=== PATIENT | female | born 1960 | race Caucasian/White ===

== ENCOUNTER 2022-12-30 15:21 | Emergency (ER) | payer BC, SELFPAY ==
[2022-12-30] VITALS (17 sets, daily range): BP systolic 133–157; BP diastolic 83–118; PULSE 54–92; RESP 16; TEMP 36.6; O2SAT 94–98; BMI 36.7
--- NOTE | 2022-12-30 15:47 | CRLHL7_ITS ---
For Patients: As a result of the Cures Act, medical imaging exams and procedure reports are released immediately into your electronic medical record. You may view this report before your referring provider. If you have questions, please contact your health care provider. INDICATION: Lightheadedness. TECHNIQUE: Chest 2 views. COMPARISON: None. FINDINGS: Cardiovascular and mediastinum: Heart size and vasculature are normal in caliber and appearance. Lungs and pleural spaces: Lungs are clear. No sign of infiltrate or mass. No sign of pleural effusion. No pneumothorax. Bones and soft tissues: No significant findings. IMPRESSION: No acute or significant findings. Dictated by Jer Bates MD @ 12/30/2022 5:56:35 PM (Electronically Signed)
[2022-12-30] MEDS: ONDANSETRON 2 MG/ML inj 4 MG IVP (16:07)
[2022-12-30] MEDS: LACTATED RINGERS 1000 ML 1,000 ML IV (16:07)
--- NOTE | 2022-12-30 16:17 | ED.GENADULT ---
HPI - General Adult General Date Seen: 12/30/22 Chief complaint: Neuro Symptoms/Altered Deficit Stated complaint: Dizzy, nausea for 2 days Time Seen by Provider: 12/30/22 15:39 Source: patient Mode of arrival: ambulatory Limitations: no limitations History of Present Illness HPI narrative: Patient is 62-year-old female presenting to the emergency department for nausea and lightheadedness. She states symptoms started yesterday. States she 1 episode of emesis but still feels nauseated. Has been able to eat and drink small amounts. Says he had some dizziness that woke her up yesterday was felt like she was on a boat. That dizziness has since resolved and states today she only gets lightheaded and feels like she might get close to passing out if she bends over and stands back up quickly. Denies having symptoms like this before. While in bed she says she does not have any lightheadedness current the but is feeling nauseated. Was having a headache yesterday she does have chronic migraines but denies having headache today. Denies fevers, chills, chest pain, shortness of breath, weakness, numbness, diarrhea, constipation, abdominal pain. She does states she is concerned about aortic aneurysm considering her mother had an aortic aneurysm and she she has been told it can be genetic. Related Data Home Medications Medication Instructions Recorded Confirmed ascorbic acid (vitamin C) 500 mg mg PO 12/30/22 capsule aspirin 81 mg capsule 81 mg PO DAILY 12/30/22 12/30/22 atorvastatin 20 mg tablet 20 mg PO DAILY 12/30/22 12/30/22 lisinopril 10 mg tablet 10 mg PO DAILY 12/30/22 12/30/22 metoprolol tartrate 50 mg tablet PO 12/30/22 tumeric 100 mg-lizandro 150 mg-olive cap PO 12/30/22 50 mg-oreg 150 mg-caprylate capsule Previous Rx's Medication Instructions Recorded ondansetron 4 mg disintegrating 4 mg PO Q6H #20 tabs 12/30/22 tablet Allergies Allergy/AdvReac Type Severity Reaction Status Date / Time Sulfa (Sulfonamide Allergy Severe Rash Verified 12/30/22 15:27 Antibiotics) Review of Systems Status of ROS: Reports: 10 or more systems reviewed and unremarkable except as noted in History and below PFSH PFSH Social History Smoking Status: Current every day smoker What tobacco products do you use: cigarettes Smoking packs per day: 0.25 Smoking cigarettes per day: 5.0 Do you use any of these nicotine containing products: None Second hand tobacco smoke exposure: No How often do you have a drink containing alcohol: never AUDIT-C Alcohol total score: 0 Non-prescribed substance use: denies use service: No Exam Narrative: Exam Narrative: Const: Well-nourished, Well-developed, in mild distress Eyes: PERRL, no conjunctival injection, and symmetrical lids ENMT: Atraumatic external nose and ears. Moist mucous membranes. Neck: Symmetric, trachea midline, No thyromegaly. CVS: RRR, No murmurs or gallops. Peripheral pulses 2+ and equal in all extremities RESP: Unlabored respiratory effort. Clear to auscultation bilaterally. GI: Nontender/Nondistended, No rebound or guarding. MSK:Extremities w/o deformity, Normal Active ROM Skin: Warm, Dry. No rashes or lesions. Neuro: Normal Muscle tone, No focal neurological deficits. Psych: Awake, Alert, & Oriented x3. Appropriate mood and affect. Const: Vital Signs, click to edit/add: Vital Signs - 24 hr 12/30/22 15:27 12/30/22 16:16 12/30/22 16:17 Temperature 97.8 F Pulse Rate 65 65 Pulse Rate [Pulse Oximeter] 92 Respiratory Rate 16 Blood Pressure 133/118 H Blood Pressure [Ri ght Upper Arm] 157/106 H Pulse Oximetry 98 96 94 Oxygen Delivery Me thod Room Air 12/30/22 16:18 12/30/22 16:30 12/30/22 16:32 Temperature Pulse Rate 66 63 62 Pulse Rate [Pulse Oximeter] Respiratory Rate Blood Pressure 144/89 H Blood Pressure [Ri ght Upper Arm] Pulse Oximetry 95 96 95 Oxygen Delivery Me thod 12/30/22 16:33 12/30/22 16:49 12/30/22 17:00 Temperature Pulse Rate 64 61 61 Pulse Rate [Pulse Oximeter] Respiratory Rate Blood Pressure Blood Pressure [Ri ght Upper Arm] Pulse Oximetry 94 97 97 Oxygen Delivery Me thod 12/30/22 17:02 12/30/22 17:03 12/30/22 17:15 Temperature Pulse Rate 62 60 65 Pulse Rate [Pulse Oximeter] Respiratory Rate 16 Blood Pressure 145/87 H Blood Pressure [Ri ght Upper Arm] Pulse Oximetry 97 96 96 Oxygen Delivery Me thod 12/30/22 17:30 12/30/22 17:32 12/30/22 17:45 Temperature Pulse Rate 57 L 57 L 54 L Pulse Rate [Pulse Oximeter] Respiratory Rate Blood Pressure 134/83 Blood Pressure [Ri ght Upper Arm] Pulse Oximetry 97 95 96 Oxygen Delivery Me thod 12/30/22 18:00 12/30/22 18:02 Temperature Pulse Rate 56 L 54 L Pulse Rate [Pulse Oximeter] Respiratory Rate Blood Pressure 137/89 Blood Pressure [Ri ght Upper Arm] Pulse Oximetry 97 96 Oxygen Delivery Me thod Course Vital Signs Vital signs: Initial Vital Signs Temperature 97.8 F 12/30/22 15:27 Temperature Source Temporal Artery Scan 12/30/22 15:27 Pulse Rate 92 12/30/22 15:27 Pulse Rhythm Regular 12/30/22 15:27 Pulse Strength 3+ Normal 12/30/22 15:27 Respiratory Rate 16 12/30/22 15:27 Blood Pressure 157/106 H 12/30/22 15:27 Blood Pressure Mean 123 H 12/30/22 15:27 Blood Pressure Position Sitting 12/30/22 15:27 Pulse Oximetry 98 12/30/22 15:27 Oxygen Delivery Method Room Air 12/30/22 15:27 Vital Signs Temperature 97.8 F 12/30/22 15:27 Pulse Rate 92 12/30/22 15:27 Respiratory Rate 16 12/30/22 15:27 Blood Pressure 157/106 H 12/30/22 15:27 Pulse Oximetry 98 12/30/22 15:27 Oxygen Delivery Method Room Air 12/30/22 15:27 Temperature 97.8 F 12/30/22 15:27 Pulse Rate 54 L 12/30/22 18:02 Respiratory Rate 16 12/30/22 17:02 Blood Pressure 137/89 12/30/22 18:02 Pulse Oximetry 96 12/30/22 18:02 Oxygen Delivery Method Room Air 12/30/22 15:27 Medical Decision Making MDM Narrative Medical decision making narrative: Patient is a 62-year-old female presenting to the emergency department for lightheadedness and nausea. She tells me she is feeling dizzy with the description sounds more like lightheaded. Symptoms were worse yesterday and today they only occur when she bends over. She has been having some nausea and 1 episode of emesis yesterday. She states she has been eating and drinking without issues. She has no other medical issues other than hypertension and hyperlipidemia. At this time will order CBC, CMP, chest x-ray, magnesium, troponin common cold/flu. Patient given Zofran for nausea and lactated Ringer's for dehydration After medication patient states his symptoms improved significantly. Lab work returns showing no concerning abnormalities. COVID and flu were negative. No clear obvious signs of infection. Chest x-ray returned showing no acute abnormalities. Does not appear to be cardiac related. Electrolytes are all normal. She is concern for an aortic aneurysm but she is having no abdominal pain and stable vital signs in a ruptured AAA seems very unlikely at this time. She does have a history of migraines but is not having headache today. I do not believe head imaging is necessary at this time. Patient's symptoms are most likely from a viral syndrome and she can be discharged home. I informed to drink more water as good hydration is important for recovery. She is agreeable to this plan Lab Data Labs: Lab Results 12/30/22 12/30/22 12/30/22 Range/Units 15:48 16:10 16:10 WBC 9.66 (4.50-11.00) K/uL RBC 4.55 (4.00-5.20) m/uL Hgb 13.0 (12.0-16.0) gm/dL Hct 40.4 (33.0-51.0) % MCV 89 (80-100) fL MCH 29 (26-34) pg MCHC 32 (32-36) gm/dL RDW Coeff of Geeta 13.5 (11.5-15.5) % Plt Count 294 (140-440) K/uL Neut % (Auto) 72.7 H (42.0-72.0) % Lymph % (Auto) 22.5 (20-44) % [place] % (Auto) 3.9 (0.0-11.0) % Eos % (Auto) 0.4 (0.0-7.0) % Baso % (Auto) 0.2 (0.0-3.0) % Neut # (Auto) 7.00 (1.7-7.0) K/uL Lymph # (Auto) 2.17 (0.90-2.90) K/uL [place] # (Auto) 0.40 (0.00-0.90) K/UL Eos # (Auto) 0.04 (0.00-0.50) K/uL Baso # (Auto) 0.02 (0.00-0.30) K/uL Abs Immat Gran (auto) 0.03 (0.00-0.30) K/uL Imm/Tot Granulo (auto) 0.3 % Sodium 141 (135-149) mmol/L Potassium 3.7 (3.6-5.1) mmol/L Chloride 105 (96-114) mmol/L Carbon Dioxide 28 (20-32) mmol/L Anion Gap 8 (7-15) mEq/L BUN 12 (7-30) mg/dL Creatinine 0.7 (0.5-1.5) mg/dL Estimated Creat Clear 42.89 Estimated GFR 97 ml/min Glucose 164 H (60-115) mg/dL Calcium 10.0 (8.4-10.6) mg/dL Magnesium 2.1 Cancelled (1.5-2.6) mg/dL Total Bilirubin 0.3 (0.1-1.5) mg/dL AST 28 (12-35) U/L ALT 24 (4-35) U/L Alkaline Phosphatase 103 (40-150) U/L Troponin I < 0.01 L (0.01-0.04) ng/mL Total Protein (6.0-8.3) g/dL Albumin (3.3-5.0) g/dL SARS-CoV-2 (PCR) Negative SARS-CoV-2 (Negative) Influenza Type A (PCR) Negative PCR FLU A (Negative) Influenza Type B (PCR) Negative PCR FLU B (Negative) 12/30/22 Range/Units 16:10 WBC (4.50-11.00) K/uL RBC (4.00-5.20) m/uL Hgb (12.0-16.0) gm/dL Hct (33.0-51.0) % MCV (80-100) fL MCH (26-34) pg MCHC (32-36) gm/dL RDW Coeff of Geeta (11.5-15.5) % Plt Count (140-440) K/uL Neut % (Auto) (42.0-72.0) % Lymph % (Auto) (20-44) % [place] % (Auto) (0.0-11.0) % Eos % (Auto) (0.0-7.0) % Baso % (Auto) (0.0-3.0) % Neut # (Auto) (1.7-7.0) K/uL Lymph # (Auto) (0.90-2.90) K/uL [place] # (Auto) (0.00-0.90) K/UL Eos # (Auto) (0.00-0.50) K/uL Baso # (Auto) (0.00-0.30) K/uL Abs Immat Gran (auto) (0.00-0.30) K/uL Imm/Tot Granulo (auto) % Sodium (135-149) mmol/L Potassium (3.6-5.1) mmol/L Chloride (96-114) mmol/L Carbon Dioxide (20-32) mmol/L Anion Gap (7-15) mEq/L BUN (7-30) mg/dL Creatinine (0.5-1.5) mg/dL Estimated Creat Clear Estimated GFR ml/min Glucose (60-115) mg/dL Calcium (8.4-10.6) mg/dL Magnesium (1.5-2.6) mg/dL Total Bilirubin (0.1-1.5) mg/dL AST (12-35) U/L ALT (4-35) U/L Alkaline Phosphatase (40-150) U/L Troponin I Cancelled (0.01-0.04) ng/mL Total Protein 7.4 (6.0-8.3) g/dL Albumin 4.3 (3.3-5.0) g/dL SARS-CoV-2 (PCR) (Negative) Influenza Type A (PCR) (Negative) Influenza Type B (PCR) (Negative) Imaging Data Chest x-ray: Radiologist's impression: INDICATION: Lightheadedness. TECHNIQUE: Chest 2 views. COMPARISON: None. FINDINGS: Cardiovascular and mediastinum: Heart size and vasculature are normal in caliber and appearance. Lungs and pleural spaces: Lungs are clear. No sign of infiltrate or mass. No sign of pleural effusion. No pneumothorax. Bones and soft tissues: No significant findings. IMPRESSION: No acute or significant findings. Dictated by Jer Bates MD @ 12/30/2022 5:56:35 PM ECG Data Attestation: I personally reviewed and interpreted this ECG as follows: Interpretation: Normal sinus rhythm at rate 65 beats per minute, normal intervals, normal axis, no ST or T-wave abnormalities Discharge Plan Discharge Clinical Impression: Acute viral syndrome Patient Disposition: Home, Self-Care Condition: Improved Instructions: Viral Syndrome (ED) Additional Instructions: Stay well-hydrated. Take the Zofran as needed for nausea. Follow-up with the primary care provider if symptoms are not improving. Develop any new or worsening symptoms return to the emergency department. Prescriptions: New ondansetron 4 mg tablet,disintegrating 4 mg PO Q6H Qty: 20 0RF No Action atorvastatin 20 mg tablet 20 mg PO DAILY lisinopril 10 mg tablet 10 mg PO DAILY metoprolol tartrate 50 mg tablet PO aspirin 81 mg capsule 81 mg PO DAILY sikuirt-yhnl-sowkx-oreg-capryl 100 mg-150 mg- 50 mg-150 mg capsule PO ascorbic acid (vitamin C) 500 mg capsule PO Follow Up/Referrals: Lori Knight MD [Referring] - Stand Alone Forms: [email or web address] Info Instructions
[2022-12-30 16:24] LABS: Basophils Absolute Auto 0.02 K/uL (0.00-0.30); Basophils Percent Auto 0.2 % (0.0-3.0); Eosinophils Absolute Auto 0.04 K/uL (0.00-0.50); Eosinophils Percent Auto 0.4 % (0.0-7.0); Hematocrit 40.4 % (33.0-51.0); Immature Granulocytes Abs Auto 0.03 K/uL (0.00-0.30); Immature Granulocytes Pct Auto 0.3 %; Lymphocytes Absolute Auto 2.17 K/uL (0.90-2.90); Lymphocytes Percent Auto 22.5 % (20-44); Mean Corpuscular HGB Conc 32 gm/dL (32-36); Mean Corpuscular Hemoglobin 29 pg (26-34); Mean Corpuscular Volume 89 fL (80-100); Monocytes Percent Auto 3.9 % (0.0-11.0); Neutrophils Percent Auto 72.7 % (42.0-72.0); Platelet Count* 294 K/uL (140-440); RDW Coefficient of Variation % 13.5 % (11.5-15.5); Red Blood Count 4.55 m/uL (4.00-5.20); White Blood Count* 9.66 K/uL (4.50-11.00)
[2022-12-30 16:41] LABS: Albumin* 4.3 g/dL (3.3-5.0); Chloride* 105 mmol/L (96-114); Slide Review Reflex No
[2022-12-30 16:42] LABS: Potassium* 3.7 mmol/L (3.6-5.1); Sodium* 141 mmol/L (135-149)
[2022-12-30 16:44] LABS: Alkaline Phosphatase* 103 U/L (40-150); Anion Gap 8 mEq/L (7-15); Aspartate Amino Transferase* 28 U/L (12-35); Bilirubin Total* 0.3 mg/dL (0.1-1.5); Carbon Dioxide* 28 mmol/L (20-32); Creatinine* 0.7 mg/dL (0.5-1.5); Est. Creatinine Clearance* 42.89; Estimated Glomerular Filt Rate 97 ml/min; Total Protein* 7.4 g/dL (6.0-8.3)
[2022-12-30 16:45] LABS: Alanine Aminotransferase* 24 U/L (4-35); Blood Urea Nitrogen* 12 mg/dL (7-30); Glucose* 164 mg/dL (60-115); Magnesium* 2.1 mg/dL (1.5-2.6)
[2022-12-30 16:58] LABS: PCR FLU A Negative PCR FLU A (Negative); PCR FLU B Negative PCR FLU B (Negative)
[2022-12-30 17:00] LABS: Troponin I* < 0.01 ng/mL (0.01-0.04)
[2022-12-30 17:05] LABS: SARS PCR* Negative SARS-CoV-2 (Negative)
--- NOTE | 2022-12-30 17:11 | PC.NURSE ---
Patient feeling a lot better. Denies nausea and dizziness at this time. Ambulated to the bathroom and voided without difficulty. MD updated.
== END 2022-12-30 18:20 | disposition home or self-care (01) ==
PROVIDERS: Emergency Provider Student in an Organized Health Care Education/Training Program
DX: B34.9 Viral infection, unspecified (principal)
CPT/HCPCS: 36415; 71046; 80053; 83735; 84484; 85025; 87631; 93005; 96361; 96374; 99283; 99284; 99285; J2405; J7120